=== PATIENT | female | born 1965 | race Caucasian/White ===

== ENCOUNTER 2016-10-25 23:09 | Emergency (ER) | payer MEDICAID, OTHER ==
[2016-10-25 23:18] VITALS: O2SAT 99
[2016-10-26] MEDS ORDERED: Albuterol-Ipratrop 3 mg / 0.5 (3 ml) UD ONE ×2 (00:17→01:01)
--- NOTE | 2016-10-26 00:24 | C.PDOC ---
History Of Present Illness pt with worsening wheezing, some dyspnea. Speaking in complete sentences. No f/c /n/v. Time Seen by Provider: 10/26/16 00:24 Chief Complaint (Nursing): Shortness Of Breath History Per: Patient History/Exam Limitations: no limitations Onset/Duration Of Symptoms: Days Current Symptoms Are (Timing): Worse Initiating Event: Out Of Medications Quality: Tightness Exacerbating Factor(s): Exertion, Coughing Current Respiratory Medications: See Home Med List Severity: Moderate Pain Scale Rating Of: 5 Associated Symptoms: denies: Fever, Chills Reports Recently: Treated By A Physician Additional History Per: Family Past Medical History Reviewed: Historical Data, Nursing Documentation, Vital Signs Vital Signs: Last Vital Signs Temp 98.1 F 10/25/16 23:16 Pulse 91 H 10/25/16 23:16 Resp 18 10/26/16 00:42 BP 129/85 10/25/16 23:16 Pulse Ox 99 10/26/16 00:24 Family History: States: No Known Family Hx - Social History Hx Tobacco Use: No Hx Alcohol Use: No Hx Substance Use: No - Immunization History Hx Tetanus Toxoid Vaccination: No Hx Influenza Vaccination: No Hx Pneumococcal Vaccination: No Review Of Systems Constitutional: Negative for: Fever, Chills ENT: Negative for: Throat Pain Cardiovascular: Negative for: Chest Pain, Palpitations Respiratory: Positive for: Shortness of Breath, Wheezing Gastrointestinal: Negative for: Nausea, Vomiting Genitourinary: Negative for: Hematuria Musculoskeletal: Positive for: Foot Pain Skin: Negative for: Rash, Lesions, Jaundice, Bruising Neurological: Negative for: Weakness Psych: Negative for: Anxiety Physical Exam - Physical Exam Skin: Warm, Dry Eye(s): bilateral: Normal Inspection Oral Mucosa: Moist Neck: Supple Chest: Symmetrical Cardiovascular: Rhythm Regular Respiratory: No Accessory Muscle Use, No Rhonchi, Wheezing Gastrointestinal/Abdominal: Soft, No Tenderness, No Distention Back: Normal Inspection Extremity: Normal ROM Extremity: Bilateral: Atraumatic, Normal Color And Temperature Neurological/Psych: Oriented x3, Normal Speech, Normal Cognition Gait: Steady ED Course And Treatment O2 Sat by Pulse Oximetry: 99 Pulse Ox Interpretation: Normal Progress Note: nebs, prednisone Reassessment Condition: Improved Critical Care Time - Critical Care Note Total Time (in mins): 30 Documented critical care: time excludes all time spent performing seperately billable procedures. Disposition Counseled Patient/Family Regarding: Studies Performed, Diagnosis, Need For Followup - Disposition Referrals: [facility] at [facility] [Outside] [facility] [Outside] Disposition: HOME/ ROUTINE Disposition Time: 00:24 Condition: FAIR Prescriptions: Albuterol HFA [Ventolin HFA 90 mcg/actuation (8 g)] 2 puff IH [id number] #1 puff Albuterol 0.083% [Albuterol Sulfate 3 Ml] 3 ml IH QID PRN #50 neb PRN Reason: asthma Prednisone [Deltasone] 20 mg PO DAILY #5 tablet Instructions: Asthma (DC) Forms: Work Excuse Print Language: KYRGYZ - Clinical Impression Clinical Impression: Asthma exacerbation
[2016-10-26] MEDS: Albuterol-Ipratrop 3 mg / 0.5 (3 ml) UD IH SCH ×3 (00:59→01:27)
[2016-10-26 01:52] VITALS: BP 135/71; PULSE 100; RESP 16; TEMP 98
== END 2016-10-26 01:51 | disposition home or self-care (01) ==
LOC: C.ER 23:09
DX: J45.901 Unspecified asthma with (acute) exacerbation (principal)

== ENCOUNTER 2017-05-09 16:03 | Emergency (ER) | payer OTHER ==
[2017-05-09 16:18] VITALS: BP 125/80; PULSE 83; RESP 16; TEMP 98.1; O2SAT 100
--- NOTE | 2017-05-09 16:44 | C.PDOC ---
History Of Present Illness 52 yo female come in for evaluation of Right foot pain intermittent for past 2 months. Pt reports, pain worse over past few days, noted some swelling over medial aspect foot. Pt admits, was seen few weeks ago at Clinic, when "was tested for gout, uric acid was normal". Otherwise, pt denies known trauma or injury, fever, chills, denies Right calf pain, denies weakness, sensory or vascular deficits to Right foot, no deformity or sin changes. Ambulate to ED for evaluation, not in any apparent distress. Time Seen by Provider: 05/09/17 16:29 Chief Complaint (Nursing): Lower Extremity Problem/Injury History Per: Patient Past Medical History Reviewed: Historical Data, Nursing Documentation, Vital Signs Vital Signs: Last Vital Signs Temp 98.1 F 05/09/17 16:16 Pulse 83 05/09/17 16:16 Resp 16 05/09/17 16:16 BP 125/80 05/09/17 16:16 Pulse Ox 100 05/09/17 16:52 - Medical History PMH: No Chronic Diseases Family History: States: No Known Family Hx - Social History Hx Tobacco Use: No Hx Alcohol Use: No Hx Substance Use: No - Immunization History Hx Tetanus Toxoid Vaccination: No Hx Influenza Vaccination: No Hx Pneumococcal Vaccination: No Review Of Systems Except As Marked, All Systems Reviewed And Found Negative. Constitutional: Negative for: Fever, Chills Musculoskeletal: Positive for: Foot Pain Skin: Negative for: Rash, Lesions Neurological: Negative for: Weakness, Numbness Physical Exam - Physical Exam Appears: Well, Non-toxic, No Acute Distress Skin: Normal Color, Warm, No Rash, No Ecchymosis Extremity: Normal ROM (Right ankle), Tenderness (mild tenderness mid-medial aspect Right foot with localized nos edema. No skin changes, no erythema, no proximal streaking.), No Calf Tenderness (B/L), Capillary Refill (less than 2sec to Right foot), No Deformity Neurological/Psych: Oriented x3, Normal Speech, Normal Motor, Normal Sensation, Normal Reflexes ED Course And Treatment O2 Sat by Pulse Oximetry: 100 Pulse Ox Interpretation: Normal - Other Rad Right foot X-Ray: Interpreted by Me, Viewed By Me Interpretation: (+) HEEL SPUR, NO ACUTE FX OR DISLOCATION Progress Note: On re-eval, pt is afebrile, hemodynamicaly stable. Non-toxic. Ambulatory in ED with stable gait. RLE:exam c/w mild tenderness and edema over medial aspect foot. FAROM, no neurovascular deficits, no defomrity, no cellulitis. Xray review and appears normal. Pt advised and ref. to f/u with Twine Winder in 2-3 days for re-evaluation. return to ED if any worsening or new changes. Disposition Counseled Patient/Family Regarding: Studies Performed, Diagnosis, Need For Followup, Rx Given - Disposition Referrals: [facility] at [facility] [Outside] [facility] [Outside] Disposition: HOME/ ROUTINE Disposition Time: 16:50 Condition: STABLE Additional Instructions: LIght duty to Right foot Foot stretches and massage Consider to change shoe Follow up with Twine Winder at [facility] on Friday and Friday from 8- 12 noon or [facility] for further evaluation and treatment. Return to ED if any worsening or new changes. Prescriptions: Ibuprofen [Motrin Tab] 600 mg PO Q6 #20 tab traMADol [Ultram] 50 mg PO TID #7 tab Instructions: Plantar Fasciitis (ED) Forms: [employer] (Irish) Print Language: SAMMARINESE - Clinical Impression Clinical Impression: Foot pain, right
--- NOTE | 2017-05-09 18:16 | RAD ---
PROCEDURE: Right Foot Radiographs. HISTORY: pain COMPARISON: None available. FINDINGS: BONES: No acute displaced fracture. Plantar calcaneal spur. JOINTS: No dislocation. SOFT TISSUES: Soft tissue swelling. No evidence of radiopaque foreign body. OTHER FINDINGS: None. IMPRESSION: Plantar calcaneal spur. Soft tissue swelling. No acute displaced fracture no dislocation identified. If symptoms persist or if there is continued clinical concern, x-ray follow-up in 7-10 days should be considered.
== END 2017-05-09 17:14 | disposition home or self-care (01) ==
LOC: C.ER 16:03
DX: M79.671 Pain in right foot (principal)